=== PATIENT | female | born 1985 | race Two or more races ===

== ENCOUNTER 2024-05-10 04:44 | Emergency (ER) | payer MEDICAID, OTHER ==
[~2024-05-10] VITALS: Ht 170.2 cm; Wt 83.0 kg
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
[2024-05-10 05:20] VITALS: BP 120/75; PULSE 107; RESP 22; O2SAT 94
--- NOTE | 2024-05-10 06:05 | DVH ---
PROCEDURE: Right hand radiographs. INDICATION: pain / injury TECHNIQUE: 3 views of the right hand were obtained. COMPARISON: None FINDINGS: There is no evidence of fracture or dislocation. Joint spaces are maintained. The soft tis sues are unremarkable. IMPRESSION: 1. No fracture or dislocation.
== END 2024-05-10 07:05 ==
LOC: EDBD 04:44 → ER 04:44
DX: S60.511A Abrasion of right hand, initial encounter (principal); F10.90 Alcohol use, unspecified, uncomplicated; Y04.2XXA Assault by strike against or bumped into by another person, initial encounter; Y93.89 Activity, other specified; Y92.89 Other specified places as the place of occurrence of the external cause; Y99.8 Other external cause status; Y90.0 Blood alcohol level of less than 20 mg/100 ml
CPT/HCPCS: 73130